=== PATIENT | male | born 1990 | race Caucasian/White ===

== ENCOUNTER 2021-08-05 23:26 | Emergency (ER) | payer OTHER ==
[~2021-08-05] VITALS: Ht 172.7 cm; Wt 86.2 kg
[2021-08-05 23:29] VITALS: BP 130/84
[2021-08-06] MEDS ORDERED: NAPROSYN500 MG PO (00:15)
== END 2021-08-06 00:30 | disposition home or self-care (01) ==
LOC: ER 23:26
DX: S93.492A Sprain of other ligament of left ankle, initial encounter (principal); X50.1XXA Overexertion from prolonged static or awkward postures, initial encounter; Y93.89 Activity, other specified; Y92.89 Other specified places as the place of occurrence of the external cause; Y99.8 Other external cause status